=== PATIENT | female | born 1950 | race Caucasian/White ===

== ENCOUNTER 2016-12-12 17:28 | Emergency (ER) | payer MEDICARE, OTHER ==
[~2016-12-12] VITALS: Ht 162.6 cm; Wt 86.2 kg
[~2016-12-12 17:28] MED LIST: IBUP-51
--- NOTE | 2016-12-12 17:44 | NUR ---
BIB FAMILY CC: DIZZINESS, FELL 1 WEEK PRIOR TO ARRIVAL, N/V X 2 DAYS. NAD NOTED. PT AAO X4, AMB WITH STEADY GAIT. RR EVEN AND UNLABORED. VSS. PENDING MD SIMMONS.
--- NOTE | 2016-12-12 19:13 | NUR ---
REPORT REC'D FROM MIKEL LAWTON FOR JOVANI.
[2016-12-12] MEDS ORDERED: ONDANSETRON 4 MG TAB.RAPDIS PO ONE (19:30)
--- NOTE | 2016-12-12 19:47 | NUR ---
Patient discharged to home in stable condition. Written and verbal after care instructions given. Patient verbalizes understanding of instruction AND RX. PT'S BROTHER IS AT THE BEDSIDE AND WILL DRIVE PT HOME. VSS. PT LEFT VIA WC.
[2016-12-12 19:59] VITALS: BP 126/81
== END 2016-12-12 19:59 | disposition home or self-care (01) ==
LOC: ER 17:30
DX: S06.0X9A Concussion with loss of consciousness of unspecified duration, initial encounter (principal); S00.93XA Contusion of unspecified part of head, initial encounter; M54.5 Low back pain; G89.29 Other chronic pain; Z98.890 Other specified postprocedural states; W01.198A Fall on same level from slipping, tripping and stumbling with subsequent striking against other object, initial encounter; Y93.89 Activity, other specified; Y92.89 Other specified places as the place of occurrence of the external cause; Y99.9 Unspecified external cause status
CPT/HCPCS: 70450-TC; 72131-TC; A4606; Z7610

== ENCOUNTER 2020-01-18 19:05 | Emergency (ER) | payer MEDICARE ==
[~2020-01-18] VITALS: Ht 167.6 cm; Wt 86.2 kg
--- NOTE | 2020-01-18 19:15 | NUR ---
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 PER PT HAD AN EPISODE LIKE THIS YEARS AGO. "I TRIED HOLDING MY HEAD IN ICE WATER BEFORE CALLING 911 BUT IT DIDN'T HELP" PT WAS GIVEN ADENOSIN 6MG IV FREIGHT RATE SPECIALIST AND CURRENTLY HR REMAINED WNL. PT DENIED CP OR SOB. PT WAS PLACED ON A MONITOR. IVF ON RAC RUNNING. IV LINE FLUSHES WELL W. NO S/S OF INFILTRATION. WILL CONT TO MONITOR ,
[2020-01-18] MEDS ORDERED: IV NS 0.9% 500 ML BAG IV ONE (19:30)
[2020-01-18 20:09] LABS: BASOPHILS % (AUTO) 0.4 % (0.0-2.0); EOSINOPHILS % (AUTO) 1.1 % (0.0-6.0); HEMATOCRIT 45 % (33-45); LYMPHOCYTES # (AUTO) 1.6 /CMM (0.8-4.8); LYMPHOCYTES % (AUTO) 19.5 % (20.0-44.0); MEAN CORPUSCULAR HGB CONC 33 g/dl (31.0-36.0); MEAN CORPUSCULAR VOLUME 99 fL (82-100); MONOCYTES # (AUTO) 0.7 /CMM (0.1-1.30); MONOCYTES % (AUTO) 8.8 % (2.0-12.0); NEUTROPHILS # (AUTO) 5.9 /CMM (1.8-8.9); NEUTROPHILS % (AUTO) 70.2 % (43.0-81.0); PLATELET COUNT (AUTO) 220 /CMM (150-450); RED BLOOD CELL COUNT(AUTO) 4.59 MIL/uL (4.0-5.2); WHITE BLOOD COUNT (AUTO) 8.3 K/uL (4.3-11.0)
[2020-01-18 20:21] LABS: CALCIUM, SERUM 8.6 mg/dL (8.5-10.1); CREATININE 0.9 mg/dL (0.6-1.3); POTASSIUM 3.4 mmol/L (3.5-5.1)
--- NOTE | 2020-01-18 20:59 | NUR ---
PT IN BED AWAKE AND ALERT. REPORTING FEELING WELL W/ NO C/O PAIN OR DISCOMFORT. NO CP. NO SOB. NO PALPITATION. VSS. WILL CONT TO MONITOR.
[2020-01-18 21:04] LABS: THYROID STIMULATING HORMONE 2.124 uIU/mL (0.358-3.74)
--- NOTE | 2020-01-18 21:40 | NUR ---
IVPT IS MEDICALLY STABLE FOR D/C. IV removed. Catheter intact and site benign. Pressure and 4x4 applied to site. No bleeding noted.Patient discharged to home in stable condition. Written and verbal after care instructions given. Patient verbalizes understanding of instruction.
[2020-01-18 21:44] VITALS: BP 118/84
== END 2020-01-18 21:45 | disposition home or self-care (01) ==
LOC: ER 19:06
DX: I47.1 Supraventricular tachycardia (principal); G89.29 Other chronic pain; Z98.890 Other specified postprocedural states; Z88.0 Allergy status to penicillin
CPT/HCPCS: 36415; 80048-TC; 84439-TC; 84443-TC; 85025-TC; J7040

== ENCOUNTER 2020-03-11 10:48 | Inpatient (IN) | payer MEDICARE, BC ==
[~2020-03-11] VITALS: Ht 167.6 cm; Wt 88.5 kg
--- NOTE | 2020-03-11 10:50 | NUR ---
BIB FOR C/O HEART PALPITATION SINCE 399. HX OF SVT, TO ER BED 5, HOOKED TO CHANNEL CEMENTER, BP CUFF AND POX, CHANGED TO HOSP GOWN, WARM BLANKET PROVIDED, PATIENT AAO x 4, NATIONAL SALES MANAGER AT BEDSIDE, DR SMITH AT BEDSIDE
[2020-03-11] MEDS ORDERED: ADENOSINE 6 MG/2 ML VIAL ONE ×2 (10:52→11:22)
--- NOTE | 2020-03-11 10:56 | NUR ---
PATIENT ON SVT AT 176BPM. DR SMITH AT BEDSIDE, INSTRUCTED ADENOSINE 6MG RAPID IVP. CARRIED OUT. PATIENT CONVERTED TO SINUS RHYTHM AT 98BPM. SPOUT LINER AT BEDSIDE FOR EKG.
[2020-03-11 10:58] LABS: BASOPHILS # (AUTO) 0.1 /CMM (0.0-0.2); BASOPHILS % (AUTO) 0.5 % (0.0-2.0); HEMATOCRIT 45 % (33-45); HEMOGLOBIN 15.1 g/dL (11.5-14.8); LYMPHOCYTES # (AUTO) 3.9 /CMM (0.8-4.8); LYMPHOCYTES % (AUTO) 30.2 % (20.0-44.0); MEAN CORPUSCULAR HGB CONC 34 g/dl (31.0-36.0); MEAN CORPUSCULAR VOLUME 98 fL (82-100); MONOCYTES # (AUTO) 1.1 /CMM (0.1-1.30); MONOCYTES % (AUTO) 8.4 % (2.0-12.0); NEUTROPHILS # (AUTO) 7.7 /CMM (1.8-8.9); NEUTROPHILS % (AUTO) 59.9 % (43.0-81.0); PLATELET COUNT (AUTO) 309 /CMM (150-450); RED BLOOD CELL COUNT(AUTO) 4.58 MIL/uL (4.0-5.2); WHITE BLOOD COUNT (AUTO) 12.9 K/uL (4.3-11.0)
[2020-03-11] MEDS ORDERED: IV NS 0.9% 1,000 ML BAG IV ONE (11:00)
[2020-03-11 11:07] LABS: CALCIUM, SERUM 9.7 mg/dL (8.5-10.1); CREATININE 0.9 mg/dL (0.6-1.3); POTASSIUM 3.9 mmol/L (3.5-5.1)
[2020-03-11 11:13] LABS: ALBUMIN 3.9 g/dL (3.4-5.0); BILIRUBIN,DIRECT 0.1 mg/dL (0.0-0.2); BILIRUBIN,TOTAL 0.6 mg/dL (0.2-1.0); TOTAL PROTEIN, SERUM 7.5 g/dL (6.4-8.2)
[2020-03-11] MEDS ORDERED: ALBU8.5H8 IH (11:31)
[2020-03-11] MEDS ORDERED: CHOL100040 PO (11:32)
[2020-03-11] MEDS ORDERED: MULT-1200 PO (11:32)
[2020-03-11] MEDS ORDERED: ASPIRIN 81 MG TAB.CHEW PO ONE (14:30)
[2020-03-11] MEDS ORDERED: ASPIRIN 325 MG TABLET ONE (14:31)
[2020-03-11] MEDS ORDERED: FUROSEMIDE 20 MG/2 ML VIAL ONE (14:55)
[2020-03-11] MEDS ORDERED: FUROSEMIDE 20 MG/2 ML VIAL IV ONE (15:00)
--- NOTE | 2020-03-11 15:15 | NUR ---
CALLED NURSING PI/SENIOR RESEARCH ASSOCIATE FOR TELE BED.
[2020-03-11] MEDS ORDERED: ADENOSINE 6 MG/2 ML VIAL IVP ONE (17:00)
--- NOTE | 2020-03-11 17:00 | NUR ---
REPORT GIVEN TO MIKEL QUINTANA FOR JOVANI
[2020-03-11 17:15] VITALS: BP 111/63
--- NOTE | 2020-03-11 17:15 | NUR ---
ADMITTING NOTES Received patient from ER , patient is ambulatory, denies pain or discomfort, on room air, SPO2 is 98%, no SOB or resp distress observed at this time, connected to tele-monitor, readings is SR on 80-81, skin is intact, IV line on Left AC G18, intact and patent. Call light in reach, bed in lowest position, HOB elevated, will cont to monitor
--- NOTE | 2020-03-11 17:15 | NUR ---
PT TRANSPORTED TO UNIT ON [place] WITH EMT AND RN AT BEDSIDE W/ ACLS PROTOCOL. NAD NOTED. PT AMBULATED FROM GURNEY TO BED ON STEADY GAIT
--- NOTE | 2020-03-11 17:20 | NUR ---
VS ON ADMISSION: TEMP;97.8; RR;18;PULSE;82;BP 111/63; SPO2 98%
--- NOTE | 2020-03-11 19:07 | NUR ---
RN CLOSING NOTES PATIENT IN BED, COMFORTABLE, A/OX4, ON RA, SPO2 IS 99%, NO SOB, NO PAIN REPORTED, SAFETY MEASURES IN PLACE, BED IN LOWEST POSITION, CALL LIGHT IN REACH, WILL ENDORSE TO PM RN FOR JOVANI
[2020-03-11 20:00] VITALS: BP 111/65
--- NOTE | 2020-03-11 20:00 | NUR ---
RN NOTES RECEIVED PATIENT IN BED, ALERT AND ORIENTED X4, NO COMPLAIN OF CHEST PAIN, STABLE ON ROOM AIR. AWAITING ADMISSION ORDERS. KEPT SAFE, CALL LIGHT WITHIN REACH.
[2020-03-11] MEDS ORDERED: BUMETANIDE INJ 0.25 MG/ML VIAL IV ONE (21:00)
[2020-03-11] MEDS ORDERED: ONDANSETRON HCL/PF 4 MG/2 ML VIAL IVP PRN (21:00)
[2020-03-11] MEDS ORDERED: ALBUTEROL SULFATE INH 18 GM HFA.AER.AD IH PRN (21:00)
[2020-03-11] MEDS ORDERED: Z GUARD REMEDY 2 OZ OINT TP PRN (21:00)
--- NOTE | 2020-03-11 21:00 | NUR ---
RN NOTES PATIENT IN BED ALERT AND ORIENTED X4, STABLE ON ROOM AIR, NO COMPLAIN OF EPIGASTRIC PAIN, CT ABD/PELVIS COMPLETED WITH RESULTS POSTED. PATIENT IS NPO AND VERY HUNGRY NOW. NOTIFIED DR. SONI TO CHANGE DIET. NEW ORDER OF CLEAR LIQUID DIET. NO NAUSEA/VOMITING. Addendum: 03/11/20 at 2323 by MARY GONZALEZ RN ABOVE NOTES NOT FOR PATIENT, PLEASE DISREGARD NOTES.
[2020-03-11] MEDS: ACETAMINOPHEN 325 MG TABLET PO PRN (21:39)
[2020-03-12] VITALS (8 sets, daily range): BP systolic 112–132; BP diastolic 57–81
--- NOTE | 2020-03-12 03:30 | NUR ---
RN NOTES DX SVT, VTE SCORE 3.0, LEFT MESSAGE TO DR. SONI IF ANTICOAGULANT NEEDED, NO CALL BACK.
[2020-03-12 03:35] LABS: BASOPHILS % (AUTO) 0.6 % (0.0-2.0); HEMATOCRIT 43 % (33-45); HEMOGLOBIN 14.6 g/dL (11.5-14.8); LYMPHOCYTES # (AUTO) 2.7 /CMM (0.8-4.8); MEAN CORPUSCULAR HGB CONC 34 g/dl (31.0-36.0); MEAN CORPUSCULAR VOLUME 97 fL (82-100); MONOCYTES # (AUTO) 0.7 /CMM (0.1-1.30); MONOCYTES % (AUTO) 10.5 % (2.0-12.0); NEUTROPHILS % (AUTO) 45.9 % (43.0-81.0); PLATELET COUNT (AUTO) 240 /CMM (150-450); RED BLOOD CELL COUNT(AUTO) 4.44 MIL/uL (4.0-5.2); WHITE BLOOD COUNT (AUTO) 6.6 K/uL (4.3-11.0)
[2020-03-12 04:24] LABS: ALBUMIN 3.7 g/dL (3.4-5.0); BILIRUBIN,TOTAL 0.6 mg/dL (0.2-1.0); CALCIUM, SERUM 8.9 mg/dL (8.5-10.1); CREATININE 0.9 mg/dL (0.6-1.3); PHOSPHORUS 3.6 mg/dL (2.5-4.9); POTASSIUM 3.2 mmol/L (3.5-5.1); TOTAL PROTEIN, SERUM 7.2 g/dL (6.4-8.2)
--- NOTE | 2020-03-12 06:17 | NUR ---
RN NOTES ALERT AND ORIENTED X4, STABLE ON ROOM AIR, NO COMPLAIN OF CHEST PAIN, SR ON TELEMETRY, BP STABLE, BUMEX IVPB X1 GIVEN, GOOD URINE OUTPUT, REQUESTING PNA AND INFLUENZA VACCINES.
--- NOTE | 2020-03-12 07:34 | NUR ---
MS/RN Opening note Patient received from online media buyer. Sleeping soundly at this time, appears in no discomfort. Tele reading NSR. Call light within reach, safety measures in place, will continue to monitor and ensure safety.
[2020-03-12] MEDS: ACETAMINOPHEN 325 MG TABLET PO PRN ×2 (08:25→20:20)
[2020-03-12] MEDS: ASPIRIN EC 81 MG TABLET.DR PO SCH (09:00)
--- NOTE | 2020-03-12 09:30 | NUR ---
MS/RN S/B Dr Gordon Seen by Dr Gordon - CTCA ordered, continue on tele and monitor troponins.
[2020-03-12] MEDS: METOPROLOL TARTRATE 50 MG TABLET PO SCH ×2 (11:56→17:33)
[2020-03-12] MEDS: POTASSIUM CHLORIDE 20 MEQ TAB.PRT.SR PO SCH ×2 (11:56→11:59)
[2020-03-12] MEDS: ENOXAPARIN SODIUM 40 MG/0.4 ML DISP.SYRIN SQ SCH (11:58)
[2020-03-12] MEDS: ATORVASTATIN 10 MG TABLET PO SCH ×2 (11:58→12:00)
[2020-03-12] MEDS ORDERED: ASPIRIN 81 MG TAB.CHEW PO SCH (12:00)
--- NOTE | 2020-03-12 12:00 | NUR ---
MS/RN Refused medication Refused to take lipitor, stating "that she does not want to be taking a whole lot of medications". Explained to her the importance of taking medication to help lower cholesterol and triglycerides as both were elevated on the morning blood draw. Stated understanding, but refused to take.
[2020-03-12] MEDS ORDERED: ALBUTEROL FS 2.5 MG/0.5 ML VIAL.NEB NEB PRN (13:30)
--- NOTE | 2020-03-12 14:56 | NUR ---
MS/RN CT Angio Per nursing supervisor industrial arts education, CT angio to take place this afternoon. Patient made aware and in agreement to plan.
--- NOTE | 2020-03-12 16:00 | NUR ---
MS/RN CT angio Patient taken to CT angio via wheelchair, medical record with patient.
[2020-03-12] MEDS ORDERED: NITROGLYCERIN 0.4 MG/TAB BOTTLE SL PRN (16:30)
[2020-03-12] MEDS ORDERED: METOPROLOL TARTRATE INJ 5 MG/5 ML AMPUL IVP PRN (16:30)
[2020-03-12] MEDS ORDERED: IV NS 0.9% 250 ML IV ONE (16:34)
[2020-03-12] MEDS ORDERED: IOHEXOL-350 100 ML VIAL IV ONE (16:34)
[2020-03-12] MEDS ORDERED: METOPROLOL TARTRATE INJ 5 MG/5 ML AMPUL ONE (16:49)
--- NOTE | 2020-03-12 17:33 | NUR ---
MS/RN Medications held Evening medications non administered as patient still in CT.
--- NOTE | 2020-03-12 18:49 | NUR ---
MS/RN End note Patient remains off unit at this time in cardiology.
--- NOTE | 2020-03-12 19:30 | NUR ---
TELE/RN OPENING NOTES: PATIENT REPORT RECEIVED FROM DAY SHIFT RNPAULA. PT IS RESTING IN BED, A/O X4. VERBALLY RESPONSIVE AND ABLE TO MAKE NEEDS KNOWN. NO SOB NOTED. ON ROOM AIR. BREATHING EVEN AND UNLABORED. AMBULATORY AND SKIN INTACT. IV ON THE LAC #18G H/L. REQUESTING TYLENOL FOR HER RIGHT ARM AT THIS TIME. TELE READING NSR WITH HR: 74. SAFETY MEAUSRES IN PLACE. BED IN LOW, LOCKED POSITION WITH SR UP X2. CALL LIGHT WITHIN REACH. WILL CONTINUE TO MONITOR ACCORDINGLY.
--- NOTE | 2020-03-12 20:22 | NUR ---
TELE/RN NOTES: PT REQUESTED FOR TYLENOL FOR HER RIGHT ARM ARTHRITIS. ADMINISTERED 650MG TYLENOL PO PRN. TOLERATED WELL. WILL CONTINUE TO MONITOR AND REASSESS FOR CHANGES.
[2020-03-13] MEDS ORDERED: ZOLPIDEM TARTRATE 5 MG TABLET PO ONE
[2020-03-13] MEDS: METOPROLOL TARTRATE 50 MG TABLET PO SCH ×2 (00:10→05:04)
[2020-03-13 04:00] VITALS: BP 109/77
[2020-03-13 04:23] VITALS: BP 109/77
[2020-03-13 07:00] LABS: BASOPHILS % (AUTO) 0.6 % (0.0-2.0); EOSINOPHILS % (AUTO) 3.1 % (0.0-6.0); HEMATOCRIT 44 % (33-45); HEMOGLOBIN 14.9 g/dL (11.5-14.8); LYMPHOCYTES # (AUTO) 2.1 /CMM (0.8-4.8); LYMPHOCYTES % (AUTO) 35.3 % (20.0-44.0); MEAN CORPUSCULAR HGB CONC 34 g/dl (31.0-36.0); MEAN CORPUSCULAR VOLUME 98 fL (82-100); MONOCYTES # (AUTO) 0.6 /CMM (0.1-1.30); MONOCYTES % (AUTO) 9.8 % (2.0-12.0); NEUTROPHILS % (AUTO) 51.2 % (43.0-81.0); PLATELET COUNT (AUTO) 237 /CMM (150-450); WHITE BLOOD COUNT (AUTO) 5.9 K/uL (4.3-11.0)
[2020-03-13 07:25] LABS: ALBUMIN 3.5 g/dL (3.4-5.0); BILIRUBIN,TOTAL 0.4 mg/dL (0.2-1.0); CALCIUM, SERUM 8.9 mg/dL (8.5-10.1); CREATININE 0.8 mg/dL (0.6-1.3); MAGNESIUM 2.2 mg/dL (1.8-2.4); PHOSPHORUS 3.9 mg/dL (2.5-4.9); POTASSIUM 3.8 mmol/L (3.5-5.1); TOTAL PROTEIN, SERUM 6.8 g/dL (6.4-8.2)
--- NOTE | 2020-03-13 07:35 | NUR ---
TARGET NETWORK ANALYST NOTES PATIENT RECEIVED IN BED, SLEEPING EASILY AWAKEN BY NAME. ALERT AND ORIENTED X 4. ON NIGHT TIME BABYSITTER SINUS RHYTHM, 60'S. ON ROOM AIR WITH NO SIGNS OF RESPIRATORY DISTRESS PRESENT AT THIS TIME, WITH EVEN NON-LABORED BREATHING, AND NO SOB NOTED. PATIENT SKIN WARM AND DRY TO TOUCH. IV ACCESS INTACT AND PATENT ON LEFT AC, SALINE LOCK. PATIENT PRESENTS WITH NO PAIN OR DISCOMFORT AT THIS TIME. SAFETY PRECAUTIONS IMPLEMENTED WITH BED LOCKED, BED IN THE LOWEST POSITION, BILATERAL SIDE RAILS UP, AND CALL LIGHT WITHIN EASY REACH. WILL CONTINUE TO MONITOR PATIENT.
--- NOTE | 2020-03-13 07:46 | NUR ---
TELE/RN CLOSING NOTES: PATIENT REMAINS RESTING IN BED, REMAINS A/O X4. VERBALLY RESPONSIVE AND ABLE TO MAKE NEEDS KNOWN. NO SOB NOTED. ON ROOM AIR. BREATHING EVEN AND UNLABORED. AMBULATORY AND SKIN INTACT. IV ON THE LAC #18G H/L. ALL NURSING NEEDS MET AND RENDERED. ALL DUE MEDS GIVEN ORDERED. TELE READING NSR WITH HR: 74. SAFETY MEASURES IN PLACE. BED IN LOW, LOCKED POSITION WITH SR UP X2. CALL LIGHT WITHIN REACH. ENDORSED TO DAY SHIFT FOR JOVANI.
[2020-03-13 08:00] VITALS: BP 127/76
[2020-03-13] MEDS ORDERED: METO50TA16 PO (08:14)
[2020-03-13] MEDS ORDERED: ASPI-1420 PO (08:14)
[2020-03-13] MEDS ORDERED: ATOR10TA PO (08:14)
[2020-03-13] MEDS: ATORVASTATIN 10 MG TABLET PO SCH (08:51)
[2020-03-13] MEDS: ASPIRIN EC 81 MG TABLET.DR PO SCH (08:52)
[2020-03-13] MEDS: ENOXAPARIN SODIUM 40 MG/0.4 ML DISP.SYRIN SQ SCH (08:52)
--- NOTE | 2020-03-13 09:00 | NUR ---
SUPERVISOR SAMPLE PREPARATION NOTES PATIENT REFUSED LIPITOR AND LOVENOX MEDICATIONS ORDERED. INFORMED THE BENEFITS MULTIPLE TIMES. PATIENT STILL KEPT REFUSING. WILL CONTINUE TO MONITOR PATIENT.
--- NOTE | 2020-03-13 11:00 | NUR ---
ROLL HANDLER NOTE: PATIENT ALERT AND ORIENTED X 4. ON ROOM AIR WITH NO SIGNS OF RESPIRATORY DISTRESS, NON-LABORED AND EVEN BREATHING, AND NO SOB NOTED. VITAL SIGNS STABLE AND WITHIN NORMAL LIMITS. ID BAND REMOVED. IV ACCESS REMOVED, CATHETER TIP INTACT, AND APPLIED PRESSURE TO SITE. EDUCATED THE PATIENT ON NEW MEDICATION PRESCRIPTION. CALL PREFERRED PHARMACY, [facility] AND MEDICATIONS WILL BE AVAILABLE FOR OPERATIONS MANAGER/COORDINATOR. EXIT CARE PROVIDED. PATIENT ACCOUNTED FOR ALL BELONGINGS. PATIENT LEFT UNIT VIA WHEELCHAIR, AND LEFT HOSPITAL IN PRIVATE CAR.
== END 2020-03-13 11:10 | disposition home or self-care (01) | DRG 280 ==
LOC: ER 10:52 → TELE 16:42
PROVIDERS: ADMIT Nurse Practitioner Acute Care; ATTEND Nurse Practitioner Acute Care
DX: I47.1 Supraventricular tachycardia (principal); I21.A1 Myocardial infarction type 2; I50.33 Acute on chronic diastolic (congestive) heart failure; G47.33 Obstructive sleep apnea (adult) (pediatric); G89.29 Other chronic pain; E87.6 Hypokalemia; Z88.5 Allergy status to narcotic agent; Z88.0 Allergy status to penicillin; Z79.51 Long term (current) use of inhaled steroids; Z79.899 Other long term (current) drug therapy; J45.909 Unspecified asthma, uncomplicated; E66.9 Obesity, unspecified; Z68.31 Body mass index [BMI] 31.0-31.9, adult
CPT/HCPCS: 36415; 71045-TC; 75574; 80048-TC; 80053-TC; 80061-TC; 80076-TC; 83735-TC; 83880; 84100-TC; 84484-TC; 85025-TC; 85730-TC; 87081-TC; 93307-TC; C9803-CS; G0378; J0153; J1650; J1940; J3490; J7050; Q9967

== ENCOUNTER 2022-09-16 20:09 | Emergency (ER) | payer MEDICARE, BC ==
[~2022-09-16] VITALS: Ht 167.6 cm; Wt 86.2 kg
[~2022-09-16 20:09] MED LIST changes: +ALBU8.5H8 IH; +ASPI-1420 PO; +ATOR10TA PO; +CHOL100040 PO; -IBUP-51; +METO50TA16 PO; +MULT-1200 PO
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
--- NOTE | 2022-09-16 21:56 | NUR ---
TAKEN TO CT
--- NOTE | 2022-09-16 21:59 | NUR ---
PT RETURNED TO ER BED [address]
[2022-09-16] MEDS ORDERED: IBUPROFEN 400 MG TABLET PO ONE (22:00)
[2022-09-16] MEDS ORDERED: IBUPROFEN 400 MG TABLET ONE (22:16)
--- NOTE | 2022-09-16 22:21 | NUR ---
Patient discharged to home in stable condition. Written and verbal after care instructions given. Patient verbalizes understanding of instruction. Pt ambulatory with a steady gait
[2022-09-16 22:23] VITALS: BP 140/88
== END 2022-09-16 22:24 | disposition home or self-care (01) ==
LOC: ER 20:13
DX: S05.12XA Contusion of eyeball and orbital tissues, left eye, initial encounter (principal); Z79.899 Other long term (current) drug therapy; Z98.890 Other specified postprocedural states; Z88.0 Allergy status to penicillin; Z88.5 Allergy status to narcotic agent; W22.8XXA Striking against or struck by other objects, initial encounter; Y93.89 Activity, other specified; Y92.89 Other specified places as the place of occurrence of the external cause; Y99.8 Other external cause status
CPT/HCPCS: 70486-TC